=== PATIENT | male | born 1935 | race Caucasian/White ===

== ENCOUNTER 2017-07-26 21:32 | Inpatient (IN) | payer MEDICARE ==
[~2017-07-26] VITALS: Ht 170.2 cm; Wt 62.6 kg
[~2017-07-26 21:32] MED LIST: ADULT ASPIRIN81 MG; AMLODIPINE BESY10 MG PO; ASPIR-LOW81 MG PO; CIPRO500 MG PO; COLACE50 MG; COZAAR50 MG; CRESTOR20 MG; FIBER 61 TAB; FLAGYL500 MG PO; HYZAAR 100-25 T1 TAB PO; MIRALAX17 G1 PO; MULTI VIT; NIASPAN1000 MG; NORVASC10 MG; OMEPRAZOLE20 MG PO; PRILOSEC20 MG; SIMCOR PO; TYLENOL PM EX-S1 TAB; TYLENOL PM EX-S1 TAB PO
[2017-07-26] MEDS ORDERED: VITAMIN B-12250 MC2 PO (23:15)
[2017-07-26] MEDS ORDERED: IBUPROFEN200 M3 PO (23:15)
[2017-07-26] MEDS ORDERED: VITAMIN D31000 UNI3 PO (23:16)
[2017-07-27 05:46] LABS: URINE BILIRUBIN NEGATIVE (NEG); URINE BLOOD SMALL (NEG); URINE GLUCOSE (UA) NEGATIVE (NEG); URINE KETONE NEGATIVE (NEG); URINE LEUKOCYTE ESTERASE POSITIVE (NEG); URINE NITRITE NEGATIVE (NEG); URINE PH 6.5 (5.0-8.0); URINE PROTEIN MODERATE (NEG); URINE SPECIFIC GRAVITY 1.015 (1.003-1.030)
[2017-07-27 05:51] LABS: URINE APPEARANCE CLEAR; URINE COLOR YELLOW
[2017-07-27 06:03] LABS: URINE EPITHELIAL CELLS 0 /[HPF] (0-10); URINE RBC 0 /[HPF] (0-5)
[2017-07-27] MEDS ORDERED: LIPITOR40 M1 PO (13:13)
[2017-07-28 05:33] LABS: HGB-HEMOGLOBIN 11.9 gm/dl (13.5-17.0); PLATELET COUNT 170 tho/cmm (150-450)
[2017-07-28] MEDS ORDERED: NORVASC10 M2 PO (13:13)
[2017-07-29 06:02] LABS: ANION GAP 7 mmol/L (0-20); BLOOD UREA NITROGEN 21 mg/dl (6-24); CALCIUM 9.2 mg/dl (8.5-10.5); CARBON DIOXIDE-VENOUS 33 mmol/L (22-32); CHLORIDE 105 mmol/l (96-110); CREATININE 1.23 mg/dl (0.60-1.30); GLUCOSE 91 mg/dL (70-110); POTASSIUM 3.6 mmol/L (3.7-5.1); SODIUM 141 mmol/L (135-145); eGFR VALUE FOR BLACK 63 mL/Min
[2017-07-29] MEDS ORDERED: ASPIRIN EC81 MG PO (13:14)
[2017-07-29] MEDS ORDERED: PLAVIX75 M1 PO (13:15)
== END 2017-07-29 14:59 | DRG 66 ==
LOC: 5EB 21:32
PROVIDERS: Internal Medicine; Registered Nurse; ADMIT Internal Medicine
DX: I63.9 Cerebral infarction, unspecified (principal); R47.01 Aphasia; I10 Essential (primary) hypertension; E78.5 Hyperlipidemia, unspecified; I65.22 Occlusion and stenosis of left carotid artery; K21.9 Gastro-esophageal reflux disease without esophagitis
CPT/HCPCS: A9577; C8925; C8929; G9162-GN-CL; G9163-GN-CK; J1650; J2250; J3010; J7030